=== PATIENT | male | born 1985 | race Caucasian/White ===

== ENCOUNTER 2016-08-15 16:46 | Emergency (ER) | payer BC ==
--- NOTE | 2016-08-16 11:25 | ER ---
ADMIT: 08/15/2016 RM/LOC: ER [facility] MR#: [id number] [facility] [address] [place], [place] [id number] MAGGY HARIS Vogel [address] [address] Emergency Room Report SEX: M AGE: 31 : 1985 DATE: 08/15/2016 ADDENDUM: See T-sheet for complete H and P. A 31-year-old male comes in with 2 hours of severe right-sided flank pain going into his abdomen. It is sharp in nature. It has been constant since onset. He has had nausea, but no vomiting. He has never had pain like this before and prior to this was feeling just fine. He does not note that he has had any urinary symptoms, has had any change in bowel function either. On physical exam, he is uncomfortable but not in any distress. He does have some flank tenderness, but his abdomen is otherwise benign. No rebound tenderness. No guarding. Does have active bowel sounds. Urinalysis shows he does have blood in his urine and 1+ protein. His CBC is unremarkable. Chemistries are normal. CT renal colic study shows a less than 1 mm stone in the right distal ureter with some mild hydro. No other acute findings. He has a normal appendix. The patient's pain is controlled in the ER with 30 of Toradol. He is given 4 of Zofran IV for nausea and he is given a liter of normal saline. He is discharged home to use Orient as needed for pain and Zofran as needed for nausea. He does not have a regular physician, so he was given Dr. Nava for followup as the stone is very likely to not cause any difficulty as it is almost in the bladder and is quite small. DIAGNOSES: 1. Ureterolithiasis. 2. Flank pain. 3. Nausea. Ashok Cohen MD/ amish ABBASI: 08/15/2016 18:16:34 JOB #: [id number] CC: Ashok Cohen MD, Attending Physician Abiel Nava MD, Family Physician
== END 2016-08-15 18:20 | disposition home or self-care (01) ==
LOC: ER 16:46
DX: N13.2 Hydronephrosis with renal and ureteral calculous obstruction (principal); F41.9 Anxiety disorder, unspecified; K21.9 Gastro-esophageal reflux disease without esophagitis; H40.9 Unspecified glaucoma; Z79.899 Other long term (current) drug therapy